=== PATIENT | female | born 1950 | race Two or more races ===

== ENCOUNTER 2022-08-05 10:14 | Inpatient (IN) | payer OTHER ==
[~2022-08-05] VITALS: Ht 154.9 cm; Wt 102.0 kg
[2022-08-05] MEDS ORDERED: SODIUM CHLORIDE 0.9% 500 ML IVB ONE (11:00)
[2022-08-05] MEDS ORDERED: KETOROLAC TROMETH 30 MG/ML 1ML VIAL IV ONE (11:00)
[2022-08-05 11:24] LABS: Basophils # (auto) 0 10 ^3/uL (0-0.2); Basophils % (auto) 0.3 % (0.0-2.0); Eosinophils # (auto) 0 10 ^3/uL (0-0.8); Eosinophils % (auto) 0.1 % (0.0-7.0); Hematocrit 38.4 % (36.0-46.0); Hemoglobin 12.4 g/dL (12.2-16.2); Lymphocytes # (auto) 1.1 10 ^3/uL (0.4-5.4); Lymphocytes % (auto) 8.3 % (10.0-50.0); Mean Corpuscular Hemoglobin 27.3 pg (28.0-32.0); Mean Corpuscular Hgb Conc. 32.4 g/dL (32.0-36.0); Mean Corpuscular Volume 84.4 fL (80.0-100.0); Monocytes # (auto) 1.4 10 ^3/uL (0-1.3); Monocytes % (auto) 10.2 % (0.0-12.0); Neutrophils # (auto) 10.9 10 ^3/uL (1.6-8.6); Neutrophils % (auto) 81.1 % (37.0-80.0); Red Blood Cells 4.55 10^6/uL (4.0-5.20); Red Cell Distribution Width 18.4 % (11.8-14.3); White Blood Cell 13.4 10^3/uL (4.4-10.8)
[2022-08-05 12:02] LABS: Calcium 8.4 mg/dL (8.5-10.1); Potassium 3.5 mmol/L (3.5-5.1)
[2022-08-05 12:08] LABS: Albumin 3.2 g/dL (3.4-5.0); Bilirubin, Total 1.2 mg/dL (0.2-1.0); Total Protein 6.4 g/dL (6.4-8.2)
[2022-08-05] MEDS ORDERED: MORPHINE SULFATE 4 MG/ML SYR/VIAL IV ONE (16:45)
[2022-08-05] MEDS ORDERED: ONDANSETRON HCL 4 MG/2 ML VIAL IV ONE (16:45)
[2022-08-05] MEDS ORDERED: ACETAMINOPHEN 325 MG TAB PO PRN (19:45)
[2022-08-05] MEDS ORDERED: NITROGLYCERIN 0.4 MG SL TAB SL PRN (19:45)
[2022-08-05] MEDS ORDERED: MORPHINE SULFATE INJ 2 MG/ml SYRG IV PRN ×2 (19:45)
[2022-08-05] MEDS ORDERED: hydrALAZINE HCL 20 MG/ML VL IV PRN (20:15)
[2022-08-05 21:28] LABS: Cholesterol 130 mg/dL (< 200); HDL Cholesterol 43 mg/dL (40-59); LDL Cholesterol 81 mg/dL (< 100); Triglycerides 85 mg/dL (< 150)
[2022-08-05 21:53] LABS: Urine Bacteria MANY /hpf (None Seen); Urine Blood Negative /uL (Negative); Urine Hyaline Cast MANY /lpf (0 - 2); Urine Mucus FEW (None Seen); Urine Specific Gravity 1.024 (1.001-1.035); Urine WBC 139 /hpf (0 - 5); Urine WBC Clumps PRESENT /hpf (None Seen)
[2022-08-05 22:00] VITALS: BP 120/69
[2022-08-05 23:30] VITALS: BP 120/69
[2022-08-06 05:01] VITALS: BP 110/58
[2022-08-06 06:03] LABS: Basophils # (auto) 0 10 ^3/uL (0-0.2); Basophils % (auto) 0.4 % (0.0-2.0); Eosinophils # (auto) 0.1 10 ^3/uL (0-0.8); Hematocrit 33.5 % (36.0-46.0); Hemoglobin 11.1 g/dL (12.2-16.2); Lymphocytes # (auto) 1.4 10 ^3/uL (0.4-5.4); Lymphocytes % (auto) 12.7 % (10.0-50.0); Mean Corpuscular Hemoglobin 27.4 pg (28.0-32.0); Mean Corpuscular Hgb Conc. 33.1 g/dL (32.0-36.0); Mean Corpuscular Volume 82.7 fL (80.0-100.0); Monocytes # (auto) 1.1 10 ^3/uL (0-1.3); Monocytes % (auto) 10.4 % (0.0-12.0); Neutrophils # (auto) 8.3 10 ^3/uL (1.6-8.6); Neutrophils % (auto) 75.5 % (37.0-80.0); Nucleated Red Blood Cells % 0.1 %; Red Blood Cells 4.05 10^6/uL (4.0-5.20); Red Cell Distribution Width 18.3 % (11.8-14.3)
[2022-08-06 06:07] LABS: Albumin 2.7 g/dL (3.4-5.0); BUN/Creatinine Ratio 17.7; Calcium 8.6 mg/dL (8.5-10.1)
[2022-08-06 06:18] LABS: Bilirubin, Total 0.8 mg/dL (0.2-1.0); Total Protein 6.4 g/dL (6.4-8.2)
[2022-08-06] MEDS ORDERED: hydrALAZINE HCL 20 MG/ML VL IV ONE (07:00)
[2022-08-06 07:14] LABS: Potassium 2.8 mmol/L (3.5-5.1)
[2022-08-06 08:00] VITALS: BP_SYST 131; BP_SYST 137; BP_DIAS 62; BP_DIAS 77
[2022-08-06] MEDS ORDERED: POTASSIUM EFFERVESENT TAB 25 MEQ PO ONE (08:15)
[2022-08-06] MEDS: ENOXAPARIN SOD 40 MG/0.4 ML SYRINGE SC SCH (09:31)
[2022-08-06] MEDS: HYDROcodone-ACET 5/325MG TAB PO PRN (09:32)
[2022-08-06] MEDS ORDERED: PANTOPRAZOLE 40 MG/10 ML VIAL INJ IV SCH (10:00)
[2022-08-06] MEDS ORDERED: cefTRIAXone 1GM/50ML D5W 50 ML IV ONE (11:00)
[2022-08-06] MEDS ORDERED: POTASSIUM CHLORIDE 40 MEQ, LIDOCAINE 1% (LOCAL ANESTH.) 4 ML in SODIUM CHL 0.9% 250 ML IV ONE (11:00)
[2022-08-06 12:00] VITALS: BP 131/62
[2022-08-06 15:12] LABS: Urine Bacteria MANY /hpf (None Seen); Urine Blood 3+ /uL (Negative); Urine Hyaline Cast MANY /lpf (0 - 2); Urine Mucus FEW (None Seen); Urine Specific Gravity 1.023 (1.001-1.035); Urine WBC 124 /hpf (0 - 5); Urine WBC Clumps PRESENT /hpf (None Seen)
[2022-08-06] MEDS ORDERED: GLIP5TAB12 PO (15:58)
[2022-08-06] MEDS ORDERED: POTA10TA51 PO (15:58)
[2022-08-06] MEDS ORDERED: FURO40TA4 PO (15:58)
[2022-08-06] MEDS ORDERED: PRE1T PO (15:58)
[2022-08-06] MEDS ORDERED: ALL100T PO (15:58)
[2022-08-06] MEDS ORDERED: CARV12.544 PO (15:58)
[2022-08-06] MEDS ORDERED: ATOR40TA52 PO (15:58)
[2022-08-06] MEDS ORDERED: LISI-275 PO (15:58)
[2022-08-06] MEDS ORDERED: CLOP75TA70 PO (15:58)
[2022-08-06 16:00] VITALS: BP 122/70
[2022-08-06 20:21] VITALS: BP 122/70
[2022-08-06 22:00] VITALS: BP 115/49
[2022-08-07 05:00] VITALS: BP 122/68
[2022-08-07 06:14] LABS: Basophils # (auto) 0 10 ^3/uL (0-0.2); Basophils % (auto) 0.4 % (0.0-2.0); Eosinophils # (auto) 0.1 10 ^3/uL (0-0.8); Eosinophils % (auto) 1.4 % (0.0-7.0); Hematocrit 33.5 % (36.0-46.0); Hemoglobin 11.3 g/dL (12.2-16.2); Lymphocytes # (auto) 2.2 10 ^3/uL (0.4-5.4); Lymphocytes % (auto) 21.2 % (10.0-50.0); Mean Corpuscular Hemoglobin 28.2 pg (28.0-32.0); Mean Corpuscular Hgb Conc. 33.6 g/dL (32.0-36.0); Mean Corpuscular Volume 83.8 fL (80.0-100.0); Monocytes % (auto) 9.7 % (0.0-12.0); Neutrophils % (auto) 67.3 % (37.0-80.0); Red Cell Distribution Width 18.4 % (11.8-14.3); White Blood Cell 10.5 10^3/uL (4.4-10.8)
[2022-08-07 06:34] LABS: INR 1.03 (0.9-1.15); Partial Thromboplastin Time 31.9 sec (24.6-33.4)
[2022-08-07 06:40] LABS: Magnesium 1.9 mg/dL (1.6-2.6); Potassium 3.7 mmol/L (3.5-5.1)
[2022-08-07 06:42] LABS: Calcium 8.8 mg/dL (8.5-10.1)
[2022-08-07 08:00] VITALS: BP_SYST 131; BP_SYST 133; BP_DIAS 63; BP_DIAS 77
[2022-08-07] MEDS: ENOXAPARIN SOD 40 MG/0.4 ML SYRINGE SC SCH (10:28)
[2022-08-07] MEDS: cefTRIAXone 1GM/50ML D5W 50 ML IV SCH (10:30)
[2022-08-07 12:00] VITALS: BP 131/63
[2022-08-07] MEDS ORDERED: DOCUSATE SOD 100 MG CAP PO ONE (12:15)
[2022-08-07] MEDS ORDERED: LACTULOSE 20Gm/30ML SOLN PO ONE (12:15)
[2022-08-07 16:00] VITALS: BP 131/68
[2022-08-07 20:00] VITALS: BP 131/63
[2022-08-07 22:00] VITALS: BP 142/72
[2022-08-08 05:00] VITALS: BP 153/68
[2022-08-08 08:00] VITALS: BP 131/63
[2022-08-08 08:55] VITALS: BP 152/73
[2022-08-08] MEDS: cefTRIAXone 1GM/50ML D5W 50 ML IV SCH (09:19)
[2022-08-08] MEDS: ENOXAPARIN SOD 40 MG/0.4 ML SYRINGE SC SCH (09:19)
[2022-08-08] MEDS: HYDROcodone-ACET 5/325MG TAB PO PRN ×2 (09:25→20:15)
[2022-08-08 13:00] VITALS: BP 132/85
[2022-08-08 16:53] VITALS: BP 100/73
[2022-08-08 22:00] VITALS: BP 116/65
[2022-08-09 05:00] VITALS: BP 159/91
[2022-08-09] MEDS ORDERED: HYDR-4902 PO (08:09)
[2022-08-09] MEDS ORDERED: CIPR-173 PO (08:09)
[2022-08-09 09:01] VITALS: BP 151/82
[2022-08-09] MEDS: cefTRIAXone 1GM/50ML D5W 50 ML IV SCH (09:13)
[2022-08-09] MEDS: ENOXAPARIN SOD 40 MG/0.4 ML SYRINGE SC SCH (09:16)
[2022-08-09] MEDS: HYDROcodone-ACET 5/325MG TAB PO PRN (09:16)
[2022-08-09 11:47] VITALS: BP 151/52
== END 2022-08-09 13:15 | disposition home or self-care (01) | DRG 872 ==
LOC: ER 10:14 → TELE 19:53 → TELE-CENTR 22:15 → CENTRAL 08-07 14:50
PROVIDERS: ADMIT Registered Nurse; ATTEND Internal Medicine
DX: A41.9 Sepsis, unspecified organism (principal); E46 Unspecified protein-calorie malnutrition; I50.42 Chronic combined systolic (congestive) and diastolic (congestive) heart failure; N39.0 Urinary tract infection, site not specified; I13.0 Hypertensive heart and chronic kidney disease with heart failure and stage 1 through stage 4 chronic kidney disease, or unspecified chronic kidney disease; Z68.41 Body mass index [BMI] 40.0-44.9, adult; Z20.822 Contact with and (suspected) exposure to COVID-19; S82.832A Other fracture of upper and lower end of left fibula, initial encounter for closed fracture; N18.9 Chronic kidney disease, unspecified; E78.5 Hyperlipidemia, unspecified; E87.6 Hypokalemia; I11.0 Hypertensive heart disease with heart failure; K80.20 Calculus of gallbladder without cholecystitis without obstruction; B96.20 Unspecified Escherichia coli [E. coli] as the cause of diseases classified elsewhere; W18.39XA Other fall on same level, initial encounter; Y93.89 Activity, other specified; Y92.89 Other specified places as the place of occurrence of the external cause; Y99.8 Other external cause status; Z82.49 Family history of ischemic heart disease and other diseases of the circulatory system; Z85.828 Personal history of other malignant neoplasm of skin; Z86.73 Personal history of transient ischemic attack (TIA), and cerebral infarction without residual deficits
CPT/HCPCS: 36415; 71045; 73610; 74176; 76705; 80048; 80053; 80061; 81001; 83036; 83690; 83735; 84443; 84484; 85025; 85610; 85730; 87040; 87077; 87086; 87088; 87186; 87426; 93005; 93306; 93886; 93971; 96361; 96374; 96375; C9113; G0378; J0696; J1885; J2001; J2405